=== PATIENT | male | born 1995 | race Caucasian/White ===

== ENCOUNTER 2021-01-07 11:41 | Outpatient (REF) | payer OTHER, SELFPAY ==
[2021-01-07 13:15] LABS: Influenza A PCR NEGATIVE (Negative); Influenza B PCR NEGATIVE (Negative); Resp Syncy Virus RNA Qual PCR NEGATIVE (Negative); SARS COV2 PCR INHOUSE POSITIVE (Negative)
== END 2021-01-07 11:42 | disposition home or self-care (01) ==
LOC: HO.LNP 11:41
PROVIDERS: Visit Provider Internal Medicine
DX: Z20.822 Contact with and (suspected) exposure to COVID-19 (principal); R51.9 Headache, unspecified; R42 Dizziness and giddiness
CPT/HCPCS: 0241U

== ENCOUNTER 2021-01-17 13:55 | Outpatient (REF) | payer OTHER, SELFPAY ==
[2021-01-17 15:01] LABS: Influenza A PCR NEGATIVE (Negative); Influenza B PCR NEGATIVE (Negative); Resp Syncy Virus RNA Qual PCR NEGATIVE (Negative); SARS COV2 PCR INHOUSE POSITIVE (Negative)
== END 2021-01-17 13:56 | disposition home or self-care (01) ==
LOC: HO.LNP 13:55
PROVIDERS: Visit Provider Internal Medicine
DX: Z20.822 Contact with and (suspected) exposure to COVID-19 (principal)
CPT/HCPCS: 0241U

== ENCOUNTER 2023-03-01 11:05 | Outpatient (REF) | payer OTHER, SELFPAY ==
[2023-03-01 13:11] LABS: MANUAL DIFF FLAG NO
[2023-03-01 13:19] LABS: Basophils Absolute Auto 0.1 X10*3/uL (0.0-0.2); Basophils Percent Auto 1.2 % (0-2); Eosinophils Absolute Auto 0.1 X10*3/uL (0.0-0.4); Eosinophils Percent Auto 1.6 % (0-4); Hematocrit 46.1 % (42.0-52.0); Hemoglobin 16.7 g/dl (14.0-18.0); Imm Gran Abs Auto 0.02 X10*3/uL (0.00-0.03); Imm Gran Pct Auto 0.3 % (0.0-0.4); Lymphocytes Absolute Auto 1.7 X10*3/uL (1.2-4.9); Lymphocytes Percent Auto 25.6 % (20-40); Mean Corpuscular HGB Conc 36.2 g/dl (31.0-36.0); Mean Corpuscular Hemoglobin 32.9 pg (27.0-33.0); Mean Corpuscular Volume 90.9 fL (80.0-98.0); Mean Platelet Volume 9.2 fL (9.4-12.4); Monocytes Absolute Auto 0.5 X10*3/uL (0.1-1.2); Monocytes Percent Auto 6.8 % (2-11); Neutrophils Absolute Auto 4.3 x10*3/uL (2.0-8.3); Neutrophils Percent Auto 64.5 % (45-73); Platelet Count 380 X10*3/uL (160-400); Red Blood Count 5.07 X10*6/uL (4.60-5.80); Red Cell Distribution Width 11.4 % (11.0-16.0); White Blood Count 6.7 X10*3/uL (4.8-10.8)
[2023-03-01 14:30] LABS: Anion Gap 14 (12-20); Blood Urea Nitrogen 10 mg/dL (9-16); Calcium 9.6 mg/dL (8.4-10.2); Carbon Dioxide 29 mmol/L (22-29); Chloride 105 mmol/L (96-108); Cholesterol 171 mg/dL (<200); Estimated Glomerular Filt Rate > 60; Glucose Random 77 mg/dL (60-115); Sodium 144 mmol/L (135-145)
== END 2023-03-01 11:06 | disposition home or self-care (01) ==
LOC: HO.10HDL 11:05
PROVIDERS: Visit Provider Internal Medicine
DX: F41.1 Generalized anxiety disorder (principal); R63.5 Abnormal weight gain; Z83.3 Family history of diabetes mellitus
CPT/HCPCS: 36415; 80048; 82465; 85025

== ENCOUNTER 2023-06-22 00:04 | Emergency (ER) | payer OTHER, SELFPAY ==
[2023-06-22 00:13] VITALS: BMI 28.4
[2023-06-22] MEDS: Lidocaine HCl 1 % MPF 5 ML VIAL INFILTRATI (00:26)
--- NOTE | 2023-06-22 01:10 | ED_ITS ---
HPI - Extremity Problem General Chief complaint: Extremity Injury, Upper Stated complaint: finger lac Time Seen by Provider: 06/22/23 00:14 Source: patient Mode of arrival: ambulatory Limitations: no limitations History of Present Illness HPI Narrative: Patient apparently got laceration to his right ring finger from a glass came with squirting blood up-to-date in his tetanus Related Data Previous Rx's ?Medication ?Instructions ?Recorded cephalexin 500 mg capsule 500 mg PO QID 10 days #40 caps 06/22/23 ibuprofen 600 mg tablet 600 mg PO Q6H PRN fever or pain 06/22/23 #30 tabs mupirocin 2 % topical ointment 1 appl topical BID #15 grams 06/22/23 Allergies Allergy/AdvReac Type Severity Reaction Status Date / Time almond [ALMOND] Allergy Intermediate THROAT AND Verified 06/22/23 00:18 EYE ITCHING Review of Systems 2 Review of Systems: Yes all other systems are reviewed and are negative PMFSH Social History Social History Advance Directives: No Advance Directives Information Provided: Yes Do you have a plan to hurt others: No Plan Physical Exam 2 Vital Signs: Vital Signs: Last Vital Signs Temp 98.7 F 06/22/23 01:16 Pulse 87 06/22/23 01:16 Resp 20 06/22/23 01:16 BP 99/52 L 06/22/23 01:16 Pulse Ox 100 06/22/23 01:16 O2 Del Method Room Air 06/22/23 01:16 BMI result Body Mass Index 28.4 Extrem: Hand/finger images: 1. Laceration to right ring finger 3 cm in length neurovascular intact medial artery of the ring finger squirting blood tendons intact Medications Administered Discontinued Medications Generic Name Dose Route Start Last Admin Trade Name Freq PRN Reason Stop Dose Admin Cephalexin HCl 500 mg 06/22/23 01:05 06/22/23 01:13 Cephalexin 500 Mg Capsule PO 06/22/23 01:06 500 mg ONCE ONE Administration Lidocaine HCl 5 ml 06/22/23 00:15 06/22/23 00:26 Lidocaine Hcl 1 % Mpf 5 Ml Vial INFILTRATI 06/22/23 00:16 5 ml ONCE ONE Administration Procedures Laceration Laceration 1: Site: hand (Right 4th finger) Side (If applicable): right Size (cm): 3 Description: irregular Depth: simple, single layer Local Anesthetic: lidocaine 1% Amount of anesthesia used (mL): 5 Pre-repair: wound explored Skin layer closed with: nylon, vicryl and other (Arterial bleed was closed using Vicryl 5- 0 3 sutures, skin approximated use in nylon 5-0 7 sutures) Size (cm): 5-0 Number of sutures: 10 Technique: simple, interrupted Discharge Plan Discharge Clinical Impression: Laceration of right ring finger without foreign body Patient Disposition: Home, Self-Care Instructions: Finger Laceration (ED) Additional Instructions: Local care as advised Suture removal Antibiotic as prescribed Prescriptions: New cephalexin 500 mg capsule 500 mg PO QID 10 Days Qty: 40 0RF mupirocin 2 % ointment 1 appl topical BID Qty: 15 0RF ibuprofen 600 mg tablet 600 mg PO Q6H PRN (Reason: fever or pain) Qty: 30 0RF Interventions: ED Discharge Assessment Last Done: 06/22/23 01:16 Discharge Date/Time: 06/22/23 01:17 Print Language: Bulgarian
[2023-06-22] MEDS: cephALEXin 500 MG CAPSULE PO (01:13)
[2023-06-22 01:16] VITALS: BP 99/52; PULSE 87; RESP 20; TEMP 37.1; O2SAT 100
== END 2023-06-22 01:17 | disposition home or self-care (01) ==
PROVIDERS: Emergency Provider Internal Medicine
DX: S61.214A Laceration without foreign body of right ring finger without damage to nail, initial encounter (principal); W25.XXXA Contact with sharp glass, initial encounter; Y93.9 Activity, unspecified; Y92.9 Unspecified place or not applicable; Y99.9 Unspecified external cause status
CPT/HCPCS: 12002; 99284